=== PATIENT | male | born 1950 | race Caucasian/White ===

== ENCOUNTER 2020-10-10 00:55 | Emergency (ER) | payer OTHER ==
[2020-10-10] MEDS ORDERED: DIPH,PERTUS(ACELL)TETVAC-LF 0.5 ML VIAL IM ONE (01:04)
[2020-10-10] MEDS ORDERED: ACETAMINOPHEN TAB 325 MG TAB PO STA (01:04)
[2020-10-10] MEDS ORDERED: BACITRACIN OINT 1 EACH PACKET TOPICAL ONE (01:31)
[2020-10-10] MEDS ORDERED: LIDOCAINE 1% INJ 10MG/ML (20 ML MDV) SQ ONE (01:31)
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
[2020-10-10] MEDS ORDERED: AMOXIC-POT CLAV 875MG STARTER PACK 2 TAB BTL PO STA ×2 (02:32→02:43)
[2020-10-10] MEDS ORDERED: FAMOTIDINE 20 MG TAB PO STA (05:07)
[2020-10-10 05:16] VITALS: RESP 18
[2020-10-10] MEDS ORDERED: MAG HYDROX/AL HYDROX/SIMETH 30 ML, HYOSCYAMINE ELIXIR 10 ML, LIDOCAINE VISCOUS 2% 10 ML PO STA ×3 (05:38)
[2020-10-10] MEDS ORDERED: ONDANSETRON ODT 4 MG TAB PO STA (05:38)
[2020-10-10 08:01] VITALS: BP 102/60; PULSE 60; TEMP 98
== END 2020-10-10 08:01 | disposition home or self-care (01) ==
LOC: EC 00:55
DX: F10.129 Alcohol abuse with intoxication, unspecified (principal); S02.2XXA Fracture of nasal bones, initial encounter for closed fracture; S02.401A Maxillary fracture, unspecified side, initial encounter for closed fracture; F17.200 Nicotine dependence, unspecified, uncomplicated; V18.4XXA Pedal cycle driver injured in noncollision transport accident in traffic accident, initial encounter; Y93.55 Activity, bike riding
CPT/HCPCS: 70450; 70486; 72125; 90471; 90715; 96372; 99284

== ENCOUNTER 2022-03-12 21:26 | Emergency (ER) | payer OTHER ==
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
[2022-03-13 07:21] VITALS: BP 133/79; PULSE 78; RESP 22; TEMP 98
== END 2022-03-13 07:21 | disposition home or self-care (01) ==
LOC: EC 21:26
DX: S20.219A Contusion of unspecified front wall of thorax, initial encounter (principal); F10.129 Alcohol abuse with intoxication, unspecified; F17.200 Nicotine dependence, unspecified, uncomplicated; V18.4XXA Pedal cycle driver injured in noncollision transport accident in traffic accident, initial encounter; Y92.410 Unspecified street and highway as the place of occurrence of the external cause
CPT/HCPCS: 99284